=== PATIENT | female | born 1995 | race Caucasian/White ===

== ENCOUNTER → 2018-10-18 | Outpatient (CLI) | payer BC ==
--- NOTE | 2018-10-18 15:20 | Diagnostic Imaging Report ---
INDICATION: Left axillary swelling. FINDINGS: Sonographic interrogation of the left axilla was performed. No sonographic abnormality is seen. No solid or cystic mass is detected. IMPRESSION: No sonographic abnormality is identified. Close clinical and self exams are recommended to confirm stability. ACR BI-RADS Category 1: Negative. Result letter will be mailed to the patient. Note: At least 10% of breast cancer is not imaged by mammography. Dictated by: Dictated on workstation # [id number]
== END ==
LOC: RAD 13:55
PROVIDERS: ATTEND Nurse Practitioner Primary Care
DX: M79.89 Other specified soft tissue disorders (principal)
CPT/HCPCS: 76642

== ENCOUNTER 2020-12-25 08:30 | Outpatient (RCR) | payer BC | END 2021-03-25 | disposition home or self-care (01) | LOC: CARD 08:30 | PROVIDERS: ATTEND Nurse Practitioner Family | DX: R00.2 Palpitations (principal) | CPT/HCPCS: 93225; 93226 ==

== ENCOUNTER → 2021-02-18 | Outpatient (CLI) | payer BC | LOC: CARD 15:00 | PROVIDERS: ATTEND Internal Medicine Cardiovascular Disease | DX: R00.2 Palpitations (principal) | CPT/HCPCS: 93306 ==

== ENCOUNTER → 2021-08-05 | Outpatient (CLI) | payer BC ==
--- NOTE | 2021-08-05 16:17 | Diagnostic Imaging Report ---
INDICATION: survey. TECHNIQUE: Multiple real-time grayscale images were obtained over the gravid uterus. COMPARISON: None. FINDINGS: There is a single live fetus in a transverse presentation with head to the maternal right. heart rate was recorded at 153 BPM. Placenta is anterior. Amniotic fluid volume appears normal. Cervical length is 6.7 cm. kidneys, bladder, and stomach are unremarkable. There is a three-vessel cord with normal insertion. There are limited views of the brain as well as the four-chamber heart and spine due to position and maternal body habitus. Biometrical measurements are as follows: Biparietal 4.57 cm, age 19 weeks 6 days. Head circumference 17.40 cm, age 20 weeks 0 days. Abdominal circumference 16.52 cm, age 21 weeks 4 days. Femur length 3.19 cm, age 20 weeks 0 days. Sonographic estimate age: 20 weeks 3 days. Sonographic estimated date of delivery: 12/20/2021. Estimated Weight: 371 gm (+/- 54 gm). LMP percentile: 83%. heart rate: 153 beats per minute. number: 1 of 1. IMPRESSION: Single live IUP of approximately 20 weeks 3 days gestational age. Estimated date of confinement sonographically is 12/20/2021. survey demonstrates suboptimal imaging of the brain, heart, and spine due to position and maternal body habitus. Dictated by: Dictated on workstation # [id number]
== END ==
LOC: RAD 15:00
PROVIDERS: ATTEND Nurse Practitioner Women's Health
DX: Z34.02 Encounter for supervision of normal first pregnancy, second trimester (principal); Z3A.20 20 weeks gestation of pregnancy
CPT/HCPCS: 76805

== ENCOUNTER → 2021-09-11 | Outpatient (CLI) | payer BC ==
--- NOTE | 2021-09-11 17:22 | Diagnostic Imaging Report ---
INDICATION: Follow-up exam for spine, heart and brain anatomy. TECHNIQUE: Multiple real-time grayscale images were obtained over the gravid uterus. COMPARISON: Obstetric ultrasound 08/05/2021. FINDINGS: Single live intrauterine gestation with anatomic measurements corresponding to a 25 week, 2 day gestation. Cephalic presentation. Anterior placenta without evidence of previa. heart rate 158 bpm. Cervical length 4.8 cm. The spine, right anatomy and heart remain poorly visualized due to lie and body habitus. Biometrical measurements are as follows: Biparietal cm, age weeks days. Head circumference cm, age weeks days. Abdominal circumference cm, age weeks days. Femur length cm, age weeks days. Sonographic estimate age: weeks days. Sonographic estimated date of delivery: . Estimated Weight: gm (+/- gm). LMP percentile: %. heart rate: beats per minute. number: of . IMPRESSION: The spine, brain anatomy and heart remain poorly evaluated due to lie and body habitus. Dictated on workstation # [id number]
== END ==
LOC: RAD 15:15
PROVIDERS: ATTEND Obstetrics & Gynecology
DX: Z34.02 Encounter for supervision of normal first pregnancy, second trimester (principal); Z3A.25 25 weeks gestation of pregnancy
CPT/HCPCS: 76816

== ENCOUNTER 2021-09-18 09:02 | Outpatient (CLI) | payer BC ==
[~2021-09-18] VITALS: Ht 162.6 cm; Wt 126.1 kg
[2021-09-18 09:20] VITALS: BP 119/68
[2021-09-18 09:35] VITALS: BP 119/68
[2021-09-18 09:55] LABS: BILIRUBIN,URINE NEGATIVE (NEGATIVE); CLARITY,URINE CLEAR; COLOR,URINE YELLOW; GLUCOSE, URINE (UA) NEGATIVE (NEGATIVE); KETONES,URINE NEGATIVE (NEGATIVE); LEUKOCYTE ESTERASE ,URINE NEGATIVE (NEGATIVE); NITRITE,URINE NEGATIVE (NEGATIVE); PROTEIN,URINE NEGATIVE (NEGATIVE)
[2021-09-18 10:03] LABS: BACTERIA,URINE NEGATIVE /HPF; WBC,URINE RARE /HPF
--- NOTE | 2021-09-18 15:44 | Diagnostic Imaging Report ---
INDICATION: Vaginal bleeding. FINDINGS: The previous OB ultrasound exam of 09/11/2021 noted a single live fetus of approximately 25 weeks 2 days gestation. There were no abnormalities identified but the anatomy was not well imaged due to lie and the patient's body habitus. On this exam, the fetus is again visualized. The fetus is now in breech presentation. heart motion was noted and a rate of 143 BPM was recorded. There are no obvious abnormalities identified; however, as on the prior exam, the anatomy is difficult to evaluate due to the patient's body habitus. The growth parameters are fairly uniform and have progressed as expected since the prior exam. The estimated weight was not obtained for this study, however. The placenta is anterior with no previa. The amniotic fluid volume is within normal limits. The cervix was identified and measures 4.2 cm in length. IMPRESSION: 1. There is a single live fetus in breech presentation at approximately 26 weeks 4 days gestation +/- 1 week. The EDC remains 12/20/2021 by the 1st exam of 08/05/2021. 2. There are no obvious abnormalities identified. The anatomy was again difficult to evaluate due to the patient's body habitus. 3. The growth parameters appear to have progressed as expected since the prior study. Dictated by: Dictated on workstation # [id number]
--- NOTE | 2021-09-19 08:14 | Physician Query-Final Dx ---
KIAH,09/19/21 0814: Clinic Account Progress/Dx Physician Query: Please give diagnosis Please include # weeks gestation Date of Service Sep 18, 2021 at 09:02 RORO OLMEDO DO 09/19/21 1433: Clinic Account Progress/Dx DIAGNOSIS: Diagnosis 26 week IUP Vaginal spotting. KIAH,SepSep 19, 2021 08:14 RORO OLMEDO DO Sep 19, 2021 14:33
== END 2021-09-18 11:35 | disposition home or self-care (01) ==
LOC: WSo 09:02 → LDRP 09:02 → WSo 11:35
PROVIDERS: ATTEND Obstetrics & Gynecology
DX: O46.92 Antepartum hemorrhage, unspecified, second trimester (principal); Z3A.26 26 weeks gestation of pregnancy
CPT/HCPCS: 76816; 81000; G0463; 99213